=== PATIENT | female | born 1970 | race Caucasian/White ===

== ENCOUNTER 2021-04-06 16:07 | Emergency (ER) | payer OTHER ==
[2021-04-06 20:24] LABS: BASOPHIL 0.7 % (0-2); EOSINOPHIL 1.2 % (0-5); HCT 44.4 % (37.0-47.0); HGB 14.8 g/dl (12.5-16.0); LYMPHOCYTE 31.8 % (15-48); MCH 32.5 pg (25.0-31.0); MCHC 33.3 g/dL (32.0-36.0); MCV 97.4 fL (78.0-100.0); MPV 10.2 fL (6.0-9.5); NRBC 0; PLT 273 K/uL (150-400); RBC 4.56 M/uL (4.20-5.40); RDW 12.9 % (11.5-14.0)
[2021-04-06 20:44] LABS: ALKALINE PHOSHATASE 65 U/L (46-116); ALT 6 U/L (14-59); AST 13 U/L (15-37); BILIRUBIN - TOTAL 0.2 mg/dL (0.2-1.0); BUN 6 mg/dL (7-18); BUN/CREAT RATIO (CALC) 9.8 RATIO; CHLORIDE 106 mmol/L (98-107); CO2 (BICARBONATE) 30 mmol/L (21-32); CREATININE 0.61 mg/dL (0.51-0.95); GLOBULIN (CALCULATION) 3.5 g/dL; GLUCOSE 98 mg/dL (74-106); POTASSIUM 3.4 mmol/L (3.5-5.1); TOTAL PROTEIN 7.5 g/dL (6.4-8.2)
[2021-04-06 20:45] LABS: C-REACTIVE PROTEIN < 0.20 mg/dL (<=0.90)
[2021-04-06] MEDS ORDERED: PREDNISONE20 MG PO (22:03)
[2021-04-06] MEDS ORDERED: ZOVIRAX800 MG PO (22:03)
[2021-04-06] MEDS ORDERED: ARTIFICIAL TEAR15 M2 EYERT (22:05)
== END 2021-04-06 22:32 | disposition home or self-care (01) ==
LOC: FER 16:07
PROVIDERS: Emergency Medicine
DX: R29.810 Facial weakness (principal); K08.89 Other specified disorders of teeth and supporting structures; H92.01 Otalgia, right ear; I10 Essential (primary) hypertension; F17.210 Nicotine dependence, cigarettes, uncomplicated
CPT/HCPCS: 36415; 70450; 70487; 80053; 85025; 86140; J2930; J7030; Q9967

== ENCOUNTER 2021-04-28 17:37 | Emergency (ER) | payer OTHER ==
[~2021-04-28 17:37] MED LIST: ARTIFICIAL TEAR15 M2 EYERT; PREDNISONE20 MG PO; ZOVIRAX800 MG PO
[2021-04-28 18:30] LABS: BILIRUBIN NEGATIVE (NEGATIVE); BLOOD 2+ Ery/uL (NEGATIVE); COLOR YELLOW (YELLOW); GLUCOSE (U) NORMAL (NORMAL); LEUKOCYTES NEGATIVE Leu/uL (NEGATIVE); NITRITE NEGATIVE (NEGATIVE); PROTEIN NEGATIVE (NEGATIVE); SPECIFIC GRAVITY 1.025 (1.001-1.030); UROBILINOGEN 0.2 mg/dL (0.2-1.0)
[2021-04-28 18:32] LABS: CLARITY SLIGHTLY HAZY (CLEAR)
[2021-04-28 18:34] LABS: BACTERIA TRACE; URINARY WBC RARE
[2021-04-28 20:52] LABS: BUN/CREAT RATIO (CALC) 14.5 RATIO; CREATININE 0.55 mg/dL (0.51-0.95); POTASSIUM 3.7 mmol/L (3.5-5.1)
[2021-04-28 21:00] LABS: BASOPHIL 0.8 % (0-2); EOSINOPHIL 1.6 % (0-5); HGB 14.7 g/dl (12.5-16.0); LYMPHOCYTE 29.5 % (15-48); MCH 32.3 pg (25.0-31.0); MCHC 33.4 g/dL (32.0-36.0); MCV 96.7 fL (78.0-100.0); MONOCYTE 11.2 % (0-12); MPV 10.6 fL (6.0-9.5); NEUTROPHIL 56.6 % (41-80); NRBC 0; PLT 231 K/uL (150-400); RBC 4.55 M/uL (4.20-5.40); RDW 13.1 % (11.5-14.0)
[2021-04-28 21:01] LABS: WBC 6.4 K/uL (4.0-10.5)
[2021-04-30 19:07] LABS: CHLAMYDIA TRACHOMATIS, NAA Negative (Negative); NEISSERIA GONORRHOEAE, NAA Negative (Negative)
== END 2021-04-28 22:48 | disposition home or self-care (01) ==
LOC: FER 17:37
PROVIDERS: Emergency Medicine; Nurse Practitioner Family
DX: R10.31 Right lower quadrant pain (principal); N83.291 Other ovarian cyst, right side; F17.290 Nicotine dependence, other tobacco product, uncomplicated; F17.210 Nicotine dependence, cigarettes, uncomplicated; Z90.710 Acquired absence of both cervix and uterus; Z90.49 Acquired absence of other specified parts of digestive tract; Z88.0 Allergy status to penicillin
CPT/HCPCS: 36415; 80048; 81001; 85025; 87088; 87491; 87591; J1885; J7030; Q9967

== ENCOUNTER 2021-07-01 21:34 | Emergency (ER) | payer OTHER ==
[2021-07-01] MEDS ORDERED: ATARAX25 MG PO (22:23)
== END 2021-07-01 23:10 | disposition home or self-care (01) ==
LOC: FER 21:34
DX: F41.9 Anxiety disorder, unspecified (principal); F32.9 Major depressive disorder, single episode, unspecified; F17.200 Nicotine dependence, unspecified, uncomplicated; Z88.0 Allergy status to penicillin; Z88.5 Allergy status to narcotic agent
CPT/HCPCS: 99283